=== PATIENT | male | born 1970 | race Caucasian/White ===

== ENCOUNTER 2018-12-09 16:42 | Emergency (ER) | payer SELFPAY ==
[~2018-12-09] VITALS: Ht 175.3 cm; Wt 74.4 kg
[2018-12-09 16:56] VITALS: Ht 175.3 cm; Wt 74.4 kg
[2018-12-09 18:38] VITALS: BP 120/74
== END 2018-12-09 18:38 | disposition home or self-care (01) ==
LOC: ED 16:42
DX: K05.30 Chronic periodontitis, unspecified (principal)
CPT/HCPCS: J0696